=== PATIENT | female | born 1985 | race Hispanic/Latino ===

== ENCOUNTER 2025-03-16 11:09 | Emergency (ER) | payer SELFPAY ==
--- NOTE | 2025-03-16 11:22 | ED_ITS ---
HPI - Abdominal Pain General Chief Complaint: Abdominal Pain Stated Complaint: Abdominal Pain Time Seen by Provider: 03/16/25 11:22 Source: patient and family Mode of arrival: ambulatory Limitations: no limitations History of Present Illness HPI narrative: Tigist is a 40-year-old female patient presenting to the clinic today with complaints of right lower quadrant abdominal pain x1 week. She endorses associated nausea, vomiting, and diarrhea. Last bowel movement was yesterday and normal for the patient. No blood in her stool. Last menstrual period was February 24. Denies any concern for . Denies any vaginal discharge. Did initially have some burning with urination initially when her symptoms started however that has resolved. She denies any fevers, chills, body aches. Had taken an [id number] naproxen 550mg for pain. Rates her pain 5/10 currently. History of diabetes and cholecystectomy with gallstones. Related Data Home Medications ?Medication ?Instructions ?Recorded ?Confirmed ?Last Taken ?Type metformin 500 mg/5 mL oral solution 500 mg PO DAILY 03/16/25 Unknown History Allergies Allergy/AdvReac Type Severity Reaction Status Date / Time No Known Allergies Allergy Verified 03/16/25 11:24 Review of Systems Review of Systems: Pertinent positives per HPI. Patient denies any fever, chills, rash, headache, visual changes, dizziness, cough, shortness of breath, chest pain, palpitations, constipation PMFSH Comments At the time of my signature, I reviewed and agree with the nursing past medical, surgical, social, and family history. There is no relevant family history pertinent to the patient complaint. Exam Narrative: General: Well-developed, overweight, in no apparent distress. Head: Normocephalic, atraumatic. Cardio: Regular rate and rhythm, s1 and s2 normal, no murmur appreciated. Resp: Clear to auscultation bilaterally, no rhonchi, rales, wheezing or rubs. Abdomen: Soft, pliable, bowel sounds present in all quadrants, right lower quadrant tender to palpation, positive psoas sign, no organomegly, no CVAT tenderness. Course Course Emergency Course: Portions of this record may have been created with voice recognition software. Level of Care: Express Care Visit Vital Signs Vital signs: Vital Signs Temperature 36.1 C L 03/16/25 11:23 Pulse Rate 70 03/16/25 11:23 Respiratory Rate 18 03/16/25 11:23 Blood Pressure 132/70 03/16/25 11:23 Pulse Oximetry 100 03/16/25 11:23 Oxygen Delivery Room Air 03/16/25 11:23 Temperature 36.1 C L 03/16/25 11:23 Pulse Rate 70 03/16/25 11:23 Respiratory Rate 18 03/16/25 11:23 Blood Pressure 132/70 03/16/25 11:23 Pulse Oximetry 100 03/16/25 11:23 Oxygen Delivery Room Air 03/16/25 11:23 Vital signs reviewed Transfer Transfered to: [facility] Transportation: Other (Private car) Transfer rationale: Right lower quadrant abdominal pain-higher level of care Accepting physician: Dr. Sanchez Transfer comments: Private car MDM - Abdominal Pain MDM Narrative Medical decision making narrative: At the time of visit patient is resting comfortably on the exam table. Patient appears to be nontoxic. Complaints of right lower quadrant abdominal pain x1 week. She endorses associated nausea, vomiting, and diarrhea. Last bowel movement was yesterday and normal for the patient. No blood in her stool. Last menstrual period was February 24. Denies any concern for . Denies any vaginal discharge. Did initially have some burning with urination initially when her symptoms started however that has resolved. She denies any fevers, chills, body aches. Had taken an [id number]-dmioonc naproxen 550mg for pain. Rates her pain 5/10 currently. History of diabetes and cholecystectomy with gallstones. Takes metformin for her diabetes. On exam patient has right lower quadrant abdominal tenderness and positive psoas sign. Plan: Recommend transfer to the emergency room for further evaluation to rule out appendicitis. Patient agrees to transfer to [facility] emergency room for further evaluation. Supportive measures were discussed with the patient and they voiced understanding discharge instructions and agrees to treatment plan. Return precautions reviewed Differential Diagnosis Differential diagnosis: Likely abdominal pain, acute appendicitis, calculus of kidney, constipation, diverticulitis, gastroenteritis, pancreatitis, small bowel obstruction and other (UTI) Discharge Plan Discharge Clinical Impression: Right lower quadrant abdominal pain Patient Disposition: Home Condition: Stable Patient Language: Pashto Prescriptions: No Action metformin 500 mg/5 mL solution 500 mg PO DAILY Follow-up/Referrals: PHYSICIAN,MANUFACTURING SUPERVISOR 2ND SHIFT [Primary Care Provider, Internal Medicine] Time of Disposition: 11:42 Quality NIHSS Nursing Documentation ED NIHSS nursing documentation: reviewed/agree
[2025-03-16 11:23] VITALS: BP 132/70; PULSE 70; RESP 18; TEMP 36.1; O2SAT 100
== END 2025-03-16 11:41 | disposition short-term general hospital (02) ==
PROVIDERS: Emergency Provider Nurse Practitioner Family
DX: R10.31 Right lower quadrant pain (principal); E11.9 Type 2 diabetes mellitus without complications; Z79.84 Long term (current) use of oral hypoglycemic drugs
CPT/HCPCS: 99202; G0463

== ENCOUNTER 2025-03-16 12:00 | Emergency (ER) | payer SELFPAY ==
--- NOTE | ~2025-03-16 | CT_ITS ---
CT abdomen pelvis w con Clinical History: ABDOMINAL PAIN . Comparison: None Technique: Axial images lung bases to symphysis pubis IV contrast information not listed in PACS Coronal, sagittal reformats CT images acquired with automatic exposure control for dose reduction DLP: 303 mGy-cm Findings: Lung bases: Clear. Visualized heart and pericardium: Unremarkable. Liver: Unremarkable. Gallbladder: Cholecystectomy. Spleen: Unremarkable. Pancreas: Unremarkable. Adrenal glands: Unremarkable. Kidneys: Right kidney- No hydronephrosis. No renal stones. Left kidney- No hydronephrosis. No renal stones. Circumaortic renal vein Distal esophagus/stomach: Unremarkable. Small bowel loops: Normal caliber and wall thickness. A few air fluid levels left upper quadrant. Colon: Diverticula. Normal caliber and wall thickness. Appendix not seen. Nodes: No enlarged nodes. Peritoneum: No ascites. No free air. Urinary bladder: Unremarkable. Uterus: Unremarkable. Adnexa: No masses. Bones: No acute bony abnormality. Soft tissues: Small hiatal hernia. Aorta: No aneurysm or dissection. IVC: Unremarkable. Left common iliac vein attenuation by right common iliac artery. Main portal vein/SMV/splenic vein: Patent. IMPRESSION: 1. Suspect enteritis. 2. Otherwise no acute abnormality. Reviewed, dictated and finalized at location R.
[2025-03-16 12:01] VITALS: BP 138/80; PULSE 67; RESP 18; TEMP 36.6; O2SAT 100
[2025-03-16 12:28] LABS: BEDSIDEPREGUCG Negative (Negative)
[2025-03-16 12:29] LABS: Hematocrit 41.2 % (37.0-47.0); Hemoglobin 13.6 g/dL (12.0-15.0); Immature Granulocyte Percent A 0.4 % (0-0.5); Lymphocytes Absolute Auto 1.95 K/mm3 (0.9-3.2); Mean Corpuscular HGB Conc 33.0 g/dl (32-36); Mean Corpuscular Hemoglobin 29.4 pg (26-34); Mean Corpuscular Volume 89.2 fl (80-100); Nucleated Red Blood Cells Absolute Auto 0.000 K/mm3 (0.0-0.012); Nucleated Red Blood Cells Perc 0.0 % (0.0-0.2); Platelet Count Result 296 k/mm3 (150-375); Red Blood Count 4.62 M/mm3 (4.2-5.4); White Blood Count 7.2 K/mm3 (4.5-10.0)
[2025-03-16 12:30] LABS: Add Urine Microscopic? NO; Appearance Urine Clear (Clear); Glucose Urine UA 2+ mg/dL (Negative); Leukocyte Esterase Ur Negative LEU/UL (Negative); Nitrate Urine Negative (Negative); Specific Grav Ur 1.023 (1.001-1.035)
--- NOTE | 2025-03-16 12:31 | ED.ABDPAIN ---
HPI - Abdominal Pain General Chief Complaint: Abdominal Pain Stated Complaint: RLQ abd pain Time Seen by Provider: 03/16/25 12:31 Source: patient Mode of arrival: ambulatory Limitations: no limitations History of Present Illness HPI narrative: 40 YEARS OLD FEMALE, DOES NOT SPEAK SPANISH CAME TO THE ED WITH SIGNIFICANT OTHER WHO SPEAKS SPANISH COMPLAINING OF RIGHT LOWER QUADRANT PAIN, INTERMITTENT STARTED IN 9 AGO, RADIATING TO RIGHT FLANK AREA. ASSOCIATED WITH NAUSEA, VOMITED ONCE A FEW DAYS AGO AND HAD LOOSE STOOL ONCE FEW DAYS AGO. HISTORY OF DIABETES AND CHOLECYSTECTOMY. PATIENT DENIES AGGRAVATING OR RELIEVING FACTORS Related Data Home Medications ?Medication ?Instructions ?Recorded ?Confirmed ?Last Taken ?Type metformin 500 mg/5 mL oral solution 500 mg PO DAILY 03/16/25 03/16/25 Unknown History Allergies Allergy/AdvReac Type Severity Reaction Status Date / Time No Known Allergies Allergy Verified 03/16/25 11:24 Review of Systems Review of Systems: All systems reviewed & are unremarkable except as noted in HPI and below Exam Narrative: GENERAL APPEARANCE: WELL-DEVELOPED, WELL-NOURISHED SKIN: NORMAL COLOR HEAD: NORMOCEPHALIC, NONTRAUMATIC EYES: CLEAR CONJUNCTIVA ENT: OROPHARYNX NORMAL, EARS NORMAL, NOSE NORMAL NECK: SUPPLE, NONTENDER CHEST AND RESPIRATORY: AIRWAY PATENT, NO RESPIRATORY DISTRESS, NO ACCESSORY MUSCLE USE HEART: REGULAR RATE/RHYTHM ABDOMEN: SOFT, MODERATE TENDERNESS RIGHT LOWER QUADRANT AND SUPRAPUBIC AREA, NO GUARDING OR REBOUND, MILD RIGHT FLANK TENDERNESS, NO RASH VASCULAR: NORMAL PERIPHERAL PULSES, NORMAL CAPILLARY REFILL. MUSCULOSKELETAL: NORMAL RANGE OF MOTION, NONTENDER BACK NEUROLOGIC: ALERT AND ORIENTED ?3, HEALTH SOCIAL WORK PROFESSOR IS NORMAL TESTED, NO GROSS MOTOR DEFICIT Course Vital Signs Vital signs: Vital Signs Temperature 36.6 C 03/16/25 12:01 Pulse Rate 67 03/16/25 12:01 Respiratory Rate 18 03/16/25 12:01 Blood Pressure 138/80 03/16/25 12:01 Pulse Oximetry 100 03/16/25 12:01 Oxygen Delivery Room Air 03/16/25 12:01 Temperature 36.6 C 03/16/25 12:01 Pulse Rate 67 03/16/25 12:01 Respiratory Rate 18 03/16/25 12:01 Blood Pressure 138/80 03/16/25 12:01 Pulse Oximetry 100 03/16/25 12:01 Oxygen Delivery Room Air 03/16/25 12:01 MDM - Abdominal Pain MDM Narrative Medical decision making narrative: PATIENT PRESENTS WITH RIGHT LOWER QUADRANT PAIN RIGHT FLANK PAIN A DAYS AGO VITAL SIGNS ARE STABLE PHYSICAL EXAMINATION CONSISTENT WITH TENDERNESS RIGHT LOWER QUADRANT AND RIGHT FLANK DIFFERENTIAL DIAGNOSIS INCLUDE DIVERTICULITIS, APPENDICITIS, COLITIS, CONSTIPATION, URINARY TRACT INFECTION, KIDNEY STONE BLOOD WORKUP INCLUDES CBC, CMP, LIPASE SHOWED INSIGNIFICANT ABNORMALITY URINALYSIS SHOWED NO EVIDENCE OF INFECTION CT ABDOMEN AND PELVIS WITH IV CONTRAST SHOWED ENTERITIS OTHERWISE NO ACUTE ABNORMALITY DISCHARGED ON LEVAQUIN, METRONIDAZOLE, AND ZOFRAN FOLLOW-UP WITH GI NEEDED Differential Diagnosis Differential diagnosis: Likely other ( ABOVE) Lab Data Attestation: I reviewed the patient's lab results. 03/16/25 12:20 03/16/25 12:20 Labs: Lab Results 03/16/25 03/16/25 Range/Units 12:20 12:26 WBC 7.2 (4.5-10.0) K/mm3 RBC 4.62 (4.2-5.4) M/mm3 Hgb 13.6 (12.0-15.0) g/dL Hct 41.2 (37.0-47.0) % MCV 89.2 (80-100) fl MCH 29.4 (26-34) pg MCHC 33.0 (32-36) g/dl RDW 12.3 (11.5-14.5) % Plt Count 296 (150-375) k/mm3 MPV 9.7 (7.4-10.4) fl Immature Gran % (Auto) 0.4 (0-0.5) % Neut % (Auto) 61.6 (45.5-73.1) % Lymph % (Auto) 27.2 (18.3-44.2) % [place] % (Auto) 4.6 (2.6-8.5) % Eos % (Auto) 5.6 H (0-4.4) % Baso % (Auto) 0.6 (0.2-1.2) % Lymph # (Auto) 1.95 (0.9-3.2) K/mm3 [place] # (Auto) 0.3 (0.1-0.6) K/mm3 Eos # (Auto) 0.4 H (0-0.3) K/mm3 Baso # (Auto) 0.0 (0.0-0.1) K/mm3 Abs Immat Gran (auto) 0.03 (0.00-0.031) K/mm3 Absolute Neuts (auto) 4.4 (1.3-6.7) K/mm3 Absolute Nucleated RBC 0.000 (0.0-0.012) K/mm3 Nucleated RBC % 0.0 (0.0-0.2) % Sodium 134 L (137-145) mmol/L Potassium 3.8 (3.4-5.0) mmol/L Chloride 102 (98-107) mmol/L Carbon Dioxide 25 (22-30) mmol/L Anion Gap 7 (4-12) mmol/L BUN 15 (7-17) mg/dL Creatinine 0.51 L (0.7-1.0) mg/dL Estim Creat Clear Calc 101 ml/min Estimated GFR > 60 (59 - ) Glucose 201 H (65-110) mg/dL Calcium 8.9 (8.4-10.2) mg/dL Total Bilirubin 0.4 (0.2-1.3) mg/dL AST 23 (14-36) U/L ALT 22 (6-35) U/L Alkaline Phosphatase 115 (38-126) U/L Total Protein 8.2 (6.3-8.2) g/dL Albumin 4.3 (3.5-5.1) g/dL Lipase 46 (23-300) U/L Urine Color Yellow (Yellow) Urine Appearance Clear (Clear) Urine pH 6.5 (5.0-9.0) Ur Specific [place] 1.023 (1.001-1.035) Urine Protein Negative (Negative) mg/dL Urine Glucose (UA) 2+ H (Negative) mg/dL Urine Ketones Trace H (Negative) mg/dL Ur Blood (Man) Negative (Negative) Urine Nitrate Negative (Negative) Urine Bilirubin Negative (Negative) Urine Urobilinogen 1.0 (<2.0) mg/dL Leukocyte Esterase Rfl Negative (Negative) CALLY/UL POC Urine HCG, Qual Negative (Negative) Imaging Data Radiologist's impression: ITS Impressions Abdomen/Pelvis CT 03/16/25 13:26 IMPRESSION: 1. Suspect enteritis. 2. Otherwise no acute abnormality. Critical Care Time Critical Care Time Critical Care Time: No Discharge Plan Discharge Clinical Impression: Enteritis Patient Disposition: Home Condition: Stable Instructions: Antibiotic Form, Enteritis (ED) Additional Instructions: RETURN IF SYMPTOMS ARE WORSENING , CALL YOUR FAMILY PHYSICIAN FOR APPOINTMENT, TAKE TYLENOL NEEDED FOR ACHES AND PAIN, CONTINUE HOME MEDICATIONS. Patient Language: Urdu Prescriptions: New levofloxacin 750 mg tablet 750 mg PO DAILY 5 Days Qty: 5 0RF metronidazole 500 mg tablet 500 mg PO Q8H 5 Days Qty: 15 0RF ondansetron 4 mg tablet,disintegrating 4 mg PO Q4H 0 Days Qty: 10 0RF Rx Instructions: 1st dose 1-2 hr before radiation No Action metformin 500 mg/5 mL solution 500 mg PO DAILY Follow-up/Referrals: PHYSICIAN,PARIMUTUEL CASHIER [Non-Staff, Internal Medicine] Anderson Crowe MD [Physician, Gastroenterology] - 03/20/25
[2025-03-16] MEDS: SODIUM CHLORIDE 0.9% IV 1,000 ML 999 ML IV CONT (12:43)
[2025-03-16 12:52] LABS: Alanine Aminotransferase 22 U/L (6-35); Albumin Level 4.3 g/dL (3.5-5.1); Alkaline Phosphatase 115 U/L (38-126); Anion Gap 7 mmol/L (4-12); Aspartate Amino Transferase 23 U/L (14-36); Bilirubin,Total 0.4 mg/dL (0.2-1.3); Blood Urea Nitrogen 15 mg/dL (7-17); Calcium 8.9 mg/dL (8.4-10.2); Carbon Dioxide 25 mmol/L (22-30); Chloride 102 mmol/L (98-107); Estimated CRCL calculation 101 ml/min; Estimated Glomerular Filt Rate > 60; Glucose 201 mg/dL (65-110); Lipase 46 U/L (23-300); Potassium 3.8 mmol/L (3.4-5.0); Sodium 134 mmol/L (137-145); Total Protein 8.2 g/dL (6.3-8.2)
[2025-03-16 14:35] VITALS: BP 116/78; PULSE 70; RESP 16; O2SAT 100
== END 2025-03-16 14:35 | disposition home or self-care (01) ==
PROVIDERS: Emergency Medicine; Emergency Provider Emergency Medicine
DX: K52.9 Noninfective gastroenteritis and colitis, unspecified (principal); E11.9 Type 2 diabetes mellitus without complications; Z90.49 Acquired absence of other specified parts of digestive tract; Z79.84 Long term (current) use of oral hypoglycemic drugs
CPT/HCPCS: 36415; 74177; 80053; 81003; 81025; 83690; 85025; 96360; 99284; J7030; Q9967